=== PATIENT | female | born 1990 | race Caucasian/White ===

== ENCOUNTER 2016-11-18 19:58 | Emergency (ER) | payer OTHER ==
--- NOTE | 2016-11-18 22:59 | ED NURSING NOTES ---
Clinical Report - Nurses [facility] [address] [place] [address] 11/18/2016 19:59 Patient: YENNIFER NOLASCO TRIAGE Triage time 20:05. Acuity: LEVEL 3. Chief Complaint: ABDOMINAL PAIN. 20:15 11/18/16. Alert. No acute distress. DAVON COMA SCORE: [place] Coma Scale: 15- eyes open spontaneously (4); best verbal response- oriented x 4 (5); best motor response- obeys commands (6). --20:15 Jaida Brooks R.N. 20:08 11/18/16. BP: 117/81. HR: 78. RR: 14. O2 saturation: 100%. Temp: 98.4 F. Pain level now: 01/18. --20:15 Jaida Brooks R.N. Weight: 63.9 kg stated. Height/Length: 63 inches Per Patient. BMI: 25. --20:10 Jaida Brooks R.N. Medications OxyCODONE HCl Oral. --20:11 Jaida Brooks R.N. Allergies Amoxicillin. --20:11 Jaida Brooks R.N. Penicillin. --20:11 Jaida Brooks R.N. Methocarbamol. --20:11 Jaida Brooks R.N. History Arrived by private vehicle. Historian: patient. Accompanied by (sister). Primary physician (Dr Jo ([place])). Onset. ("a couple hours ago"). ( Patient states "I feel like I'm being stabbed in my stomach. The pain came out of nowhere"). She has had nausea. Last oral intake by patient was (string cheese at 2pm). 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 PAST MEDICAL HX: Immunizations: up-to-date. Last normal menstrual period- 1 month ago. Denies current . SOCIAL HX: Light tobacco smoker (cigarette)- less than 1/2 a pack per day. History of drug use: heroin. Is a recovering addict. (patient states she had a relapse a week ago but is currently getting help for drug use.). FALL RISK ASSESSMENT: Fall risk assessment completed. No fall risk identified. NUTRITIONAL RISK ASSESSMENT: The nutritional risk assessment revealed no deficiencies. FUNCTIONAL ASSESSMENT: Functional assessment: no impairments noted. LEARNING NEEDS ASSESSMENT: The learning needs assessment revealed no barriers. SKIN INTEGRITY ASSESSMENT: Skin integrity risk assessment completed. No skin integrity risk identified. --20:15 Jaida Brooks R.N. PROBLEMS: Scoliosis. Chronic pancreatitis. --20:12 Jaida Brooks R.N. ADDITIONAL SURGERIES: Back Surgery. Cholecystectomy. --20:12 Jaida Brooks R.N. Tubal Ligation. --20:14 Jaida Brooks R.N. Interventions ID band on patient. To treatment room. --20:15 Jaida Brooks R.N. PHYSICAL ASSESSMENT 20:16 11/18/16. Ambulatory to room. GENERAL / NEURO / PSYCH: Alert. Oriented X 4. Appears in no acute distress. HEENT: Mucous membranes are pink. RESPIRATORY: Respirations not labored. CVS: Capillary refill less than 2 seconds. GI / : Abdomen soft. Abdominal tenderness in the epigastric area. Bowel sounds within normal limits. SKIN: Skin is warm and dry. --20:16 Jaida Brooks R.N. NURSING PROGRESS NOTES 20:16 11/18/16. Patient gowned. Two patient identifiers checked. Call light placed in reach. Side rails up x 1. Bed placed in lowest position. Brakes of bed on. --20:16 Jaida Brooks R.N. 20:20. Patient ID band checked for patient name and birthdate: patient confirmed. Clean catch urine collected with return of jonathan-colored cloudy urine; sample sent to lab for urinalysis and culture. Specimen labeled in the presence of the patient (upreg Neg -- primary nurse notified). --20:20 Liliana eHrnandez R.N. 21:00 11/18/2016 Site #1 started via IV in the right antecubital space with an 20g angiocath; one attempt. Blood drawn: rainbow set. Labeled in the presence of the patient and sent to the lab. Saline lock flushed with 5 mL saline. --21:10 Jaida Brooks R.N. 21:10 11/18/2016 Toradol IVP 30 mg given over 2 minute(s) via site #1. Allergies verified and confirmed 5 rights. IV patency established. IV site checked: no pain, redness, or swelling. IV flushed thoroughly pre- and post-medication administration. IVP given by RN. --21:10 Jaida Brooks R.N. 21:25 11/18/2016 Toradol IVP Response: no adverse reaction symptoms have gotten worse. The patient feels worse. (ED SCENIC ARTIST notified of increased pain.). --22:01 Jaida Brooks R.N. 21:42 11/18/2016 Zofran (Ondansetron HCl) IVP 4 mg given over 2 minute(s) via site #1. Allergies verified and confirmed 5 rights. IV patency established. IV site checked: no pain, redness, or swelling. IV flushed thoroughly pre- and post-medication administration. --21:47 Stanley Canela R.N. 21:44 11/18/2016 Dilaudid (HYDROmorphone HCl PF) IVP 1 mg given over 2 minute(s) via site #1. Allergies verified, confirmed 5 rights and sedative warning given to the patient and patient's tetryl dissolver operator. IV patency established. IV site checked: no pain, redness, or swelling. IV flushed thoroughly pre- and post-medication administration. --21:47 Stanley Canela R.N. 21:47. Pulse oximeter placed on patient; monitor alarms on. --21:47 Stanley Canela R.N. 22:00 11/18/16. Reassessment after medication administered. She has had no adverse reaction. Overall patient status is improved- she states feels better. --22:00 Jaida Brooks R.N. 21:59 11/18/16. BP: 110/62 taken on the left arm, while lying. HR: 62. RR: 14. O2 saturation: 100%. Pain level now: 11/18. --22:00 Jaida Brooks R.N. 22:02 11/18/2016 Zofran IVP Response: no adverse reaction pain is improving. Symptoms have improved the patient feels better. 11/18/2016 21:59 BP: 110/62. HR: 62. RR: 14. O2 saturation: 100%. Pain level now: 11/18. --22:02 Jaida Brooks R.N. 22:03 11/18/2016 Dilaudid IVP Response: no adverse reaction pain is gone now. Symptoms have improved the patient feels better. 11/18/2016 21:59 BP: 110/62. HR: 62. RR: 14. O2 saturation: 100%. Pain level now: 11/18. --22:03 Jaida Brooks R.N. 23:00 11/18/16. --23:00 Jaida Brooks R.N. 23:00 11/18/16. BP: 111/74. HR: 74. RR: 14. O2 saturation: 100%. Temp: deferred. Pain level now: 01/18. --23:00 Jaida Brooks R.N. ( ED SCENIC ARTIST notified of 01/18 pain. No orders given.). --23:06 Jaida Brooks R.N. DISPOSITION / DISCHARGE 23:00 11/18/16. BP: 111/74. HR: 74. RR: 14. O2 saturation: 100%. Temp: deferred. Pain level now: 01/18. --23:06 Jaida Brooks R.N. 23:15 11/18/16. No learning barriers present. Discharge instructions provided and reviewed with the patient and family. Reviewed warnings. Treatments reviewed. Reviewed referrals. Patient and family verbalized understanding. Written instructions provided in Yoruba. The patient was discharged home and accompanied by family. She left the Emergency Department ambulatory and via private vehicle. Family member driving. --23:15 Jaida Brooks R.N. Departure time: 23:17. --23:17 Jaida Brooks R.N. Locked/Released at 11/18/2016 23:53 by Jaida Brooks R.N.
--- NOTE | 2016-11-18 22:59 | ED ORDER SUMMARY ---
..... Patient: YENNIFER NOLASCO OrderSheet [facility] VisitID: [id number] [place] [address] 26y, F Registration Date/Time: 11/18/2016 ORDER SHEET Weight: 63.9 kg (stated) Allergies: Amoxicillin, Penicillin, Methocarbamol GENERAL ORDERS: UA-Culture if indicated Urgent (20:20 11/18/2016 RMarsden R.N. per protocol) (Collected 20:20 RMarsden R.N.) (20:34 RMarsden R.N.) POC - Urine hCG (20:21 11/18/2016 DDean R.N. per protocol) (20:21 DDean R.N.) CBC w Diff Urgent (20:41 11/18/2016 HBivens A.R.N.P.) (Ack 20:43 CHagerty ER Temporary Staff Accountant) (Collected 21:10 RMarsden R.N.) (21:21 CHagerty ER Temporary Staff Accountant) CMP Urgent (20:41 11/18/2016 HBivens A.R.N.P.) (Ack 20:43 CHagerty ER Temporary Staff Accountant) (Collected 21:10 RMarsden R.N.) (21:21 CHagerty ER Temporary Staff Accountant) Amylase Urgent (20:41 11/18/2016 HBivens A.R.N.P.) (Ack 20:43 CHagerty ER Temporary Staff Accountant) (Collected 21:10 RMarsden R.N.) (21:21 CHagerty ER Temporary Staff Accountant) Lipase Urgent (20:41 11/18/2016 HBivens A.R.N.P.) (Ack 20:43 CHagerty ER Temporary Staff Accountant) (Collected 21:10 RMarsden R.N.) (21:21 CHagerty ER Temporary Staff Accountant) US Abdomen Limited (No) Urgent (21:55 11/18/2016 HBivens A.R.N.P.) (Ack 21:58 CHagerty ER Temporary Staff Accountant) (22:40 RFay) MEDICATION ORDERS: IV FLUIDS: Toradol IV 30 mg (NOW) (20:41 11/18/2016 HBivens A.R.N.P.) (Ack 20:53 RMarsden R.N.) (21:10 RMarsden R.N.) IV Saline Lock (20:41 11/18/2016 HBivens A.R.N.P.) (Ack 20:53 RMarsden R.N.) (21:10 RMarsden R.N.) Dilaudid IV 1 mg (HIGH ALERT MEDICATION, NOW) (21:38 11/18/2016 HBivens A.R.N.P.) (Ack 21:41 JQuivey R.N.) (21:47 JQuivey R.N.) Zofran IV 4 mg (NOW) (21:38 11/18/2016 HBivens A.R.N.P.) (Ack 21:41 JQuivey R.N.) (21:47 JQuivey R.N.) ORDER SHEET NOTES: [Electronically signed by Leila CespedesRAnatoliyNAnatoliyPAnatoliy (23:51 11/18/2016)] [Electronically signed by Jaida Brooks R.N. (23:53 11/18/2016)] [Electronically locked/signed by Jaida Brooks R.N. (23:53 11/18/2016)]
--- NOTE | 2016-11-18 22:59 | ED ORDER SUMMARY ---
..... Patient: YENNIFER NOLASCO OrderSheet [facility] VisitID: [id number] [place] [address] 26y, F Registration Date/Time: 11/18/2016 ORDER SHEET Weight: 63.9 kg (stated) Allergies: Amoxicillin, Penicillin, Methocarbamol GENERAL ORDERS: UA-Culture if indicated Urgent (20:20 11/18/2016 RMarsden R.N. per protocol) (Collected 20:20 RMarsden R.N.) (20:34 RMarsden R.N.) POC - Urine hCG (20:21 11/18/2016 DDean R.N. per protocol) (20:21 DDean R.N.) CBC w Diff Urgent (20:41 11/18/2016 HBivens A.R.N.P.) (Ack 20:43 CHagerty ER Nurse Emergency) (Collected 21:10 RMarsden R.N.) (21:21 CHagerty ER Nurse Emergency) CMP Urgent (20:41 11/18/2016 HBivens A.R.N.P.) (Ack 20:43 CHagerty ER Nurse Emergency) (Collected 21:10 RMarsden R.N.) (21:21 CHagerty ER Nurse Emergency) Amylase Urgent (20:41 11/18/2016 HBivens A.R.N.P.) (Ack 20:43 CHagerty ER Nurse Emergency) (Collected 21:10 RMarsden R.N.) (21:21 CHagerty ER Nurse Emergency) Lipase Urgent (20:41 11/18/2016 HBivens A.R.N.P.) (Ack 20:43 CHagerty ER Nurse Emergency) (Collected 21:10 RMarsden R.N.) (21:21 CHagerty ER Nurse Emergency) US Abdomen Limited (No) Urgent (21:55 11/18/2016 HBivens A.R.N.P.) (Ack 21:58 CHagerty ER Nurse Emergency) (22:40 RFay) MEDICATION ORDERS: IV FLUIDS: Toradol IV 30 mg (NOW) (20:41 11/18/2016 HBivens A.R.N.P.) (Ack 20:53 RMarsden R.N.) (21:10 RMarsden R.N.) IV Saline Lock (20:41 11/18/2016 HBivens A.R.N.P.) (Ack 20:53 RMarsden R.N.) (21:10 RMarsden R.N.) Dilaudid IV 1 mg (HIGH ALERT MEDICATION, NOW) (21:38 11/18/2016 HBivens A.R.N.P.) (Ack 21:41 JQuivey R.N.) (21:47 JQuivey R.N.) Zofran IV 4 mg (NOW) (21:38 11/18/2016 HBivens A.R.N.P.) (Ack 21:41 JQuivey R.N.) (21:47 JQuivey R.N.) ORDER SHEET NOTES: [Electronically signed by Leila CespedesRAnatoliyNAnatoliyPAnatoliy (23:51 11/18/2016)] [Electronically signed by Jaida Brooks R.N. (23:53 11/18/2016)] [Electronically locked/signed by Jaida Brooks R.N. (23:53 11/18/2016)]
--- NOTE | 2016-11-18 22:59 | ED CLINICAL REPORT ---
Clinical Report - Physicians/Mid Levels [facility] [address] [place] [address] 11/18/2016 19:59 Patient: YENNIFER NOLASCO Time Seen: 20:20; initial patient contact, initial documentation, patient care assumed. Arrived- By private vehicle. Historian- patient. HISTORY OF PRESENT ILLNESS Chief Complaint: ABDOMINAL PAIN. At its maximum, severity described as severe. When seen in the E.D., severity described as severe. Modifying factors. Not worsened by anything. Not relieved by anything. It is described as "pain" and stabbing. No radiation. It is described as located in the upper abdomen. This started about 2 hours ago WAITER/WAITRESS COUNTER and is still present. The patient has had nausea. No loss of appetite, vomiting or diarrhea. No additional abdominal pain. No recent travel. Similar symptoms previously: Chronically, as bad. Recent medical care: Not recently seen/assessed. REVIEW OF SYSTEMS No constipation, black stools, difficulty with urination, pain with urination or urinary frequency. No fever, chest pain or difficulty breathing. Denies current . All systems otherwise negative, except as recorded above. PAST HISTORY See nurses notes. PROBLEMS: Scoliosis. Chronic pancreatitis. --20:12 Jaida Brooks R.N. ADDITIONAL SURGERIES: Back Surgery. Cholecystectomy. --20:12 Jaida Brooks R.N. Tubal Ligation. --20:14 Jaida Brooks R.N. SOCIAL HISTORY Light tobacco smoker. Occasional alcohol use. History of heavy IV drug use: heroin. No recent travel. Is a local resident. FAMILY HISTORY Negative. ADDITIONAL NOTES The nursing notes have been reviewed with agreement regarding the chief complaint, HPI, ROS, PMH and patient medications and allergies. PHYSICAL EXAM Vital Signs: 11/18/2016 20:08 BP: 117/81. HR: 78. RR: 14. O2 saturation: 100%. Temp: 98.4 F. Pain level now: 8/10. Have been reviewed as normal and appear to be correct. Appearance: Alert. Oriented X3. No acute distress. Eyes: Pupils equal, round and reactive to light. Eyes normal inspection. Neck: Normal inspection. Neck supple. CVS: Normal heart rate and rhythm. Heart sounds normal. Pulses normal. Respiratory: No respiratory distress. Breath sounds normal. Chest nontender. Abdomen: Soft and nontender. Bowel sounds normal. No organomegaly. No mass. Back: Normal inspection. Skin: Skin warm and dry. Normal skin color. No rash. Normal skin turgor. Extremities: Extremities exhibit normal ROM. No lower extremity edema. Neuro: Oriented X 3. No motor deficit. No sensory deficit. LABS, X-RAYS, AND EKG Abdominal Sonogram: No acute disease. (verbal report by US Gentile). The study was discussed with the radiologist. Interpretation time: 22:37. Laboratory Tests: UA-Culture if indicated: (DEBRA: 11/18/2016 20:05) ( MsgRcvd 11/18/2016 20:40) Final results Test Result Flag Units (Reference) URINE COLOR YELLOW URINE APPEARANCE SL CLOUDY URINE GLUCOSE NEGATIVE (NEGATIVE) URINE BILIRUBIN NEGATIVE (NEGATIVE) URINE KETONE NEGATIVE (NEGATIVE) URINE SPECIFIC GRAVITY 1.015 (1.010-1.030) URINE PH 8.5 H (5.0-8.0) URINE PROTEIN NEGATIVE (NEGATIVE) URINE UROBILINOGEN 0.2 EU/dL (0.2-1.0) URINE NITRITE NEGATIVE (NEGATIVE) URINE BLOOD NEGATIVE (NEGATIVE) URINE LEUK ESTERASE NEGATIVE (NEGATIVE) URINE RBC NONE SEEN rbc/hpf (0-1) URINE WBC 0-1 wbc/hpf (0-1) URINE EPITHELIAL CELLS 1-3 EPI/hpf (0-5) URINE BACTERIA TRACE (<1+) (NONE SEEN) URINE COMMENT CULT NOT INDICATED 2+ AMORPHOUSURINE CULTURES ARE SET-UP BASED ON THE FOLLOWING CRITERIA:POSITIVE NITRITEPOSITIVE LEUKOCYTE ESTERASEGREATER THAN 10 WHITE BLOOD CELLSMODERATE (2+) OR GREATER BACTERIA CBC w Diff: (DEBRA: 11/18/2016 21:07) ( [facility] [place]/18/[place] 21:16) Final results Test Result Flag Units (Reference) WHITE BLOOD COUNT 8.4 K/uL (4.5-11.5) RED BLOOD COUNT 4.57 M/uL (4.00-5.20) HEMOGLOBIN 13.5 gm/dL (12.0-16.0) HEMATOCRIT 40.5 % (36.0-46.0) MEAN CELL VOLUME 89 fL (80-100) MEAN CORPUSCULAR HGB 30 pg (26-34) MEAN CORPUSCULAR HGB CONC 33 g/dL (31-37) RED CELL DISTRIBUTION WIDTH 13.0 % (11.6-14.8) PLATELET COUNT 215 K/uL (150-400) NEUTROPHIL % 62.8 % (50-75) LYMPH % 31.5 % (25-40) MONO % 5.1 % (3-14) EOSINOPHIL % 0.2 % (0-4) BASOPHIL % 0.4 % (0-2) CMP: (DEBRA: 11/18/2016 21:07) ( MsgRcvd 11/18/2016 21:47) Final results Test Result Flag Units (Reference) GLUCOSE 97 mg/dL (70-110) BUN 11 mg/dL (7-18) CREATININE 0.7 mg/dL (0.6-1.3) Estimated GFR >60 mL/min Estimated GFR- >60 mL/min Note: Persistent reduction over 3 months in eGFR<60 mL/min/1.73 m2 defines CKD. Patients with eGFR values>=60 mL/min/1.73 m2 may also have CKD if evidence ofpersistent proteinuria. Additional information may be foundat www.kidney.org. SODIUM 146 H mmol/L (136-145) POTASSIUM 3.6 mmol/L (3.5-5.1) CHLORIDE 109 H mmol/L (98-107) CARBON DIOXIDE 27 mmol/L (21-32) CALCIUM 9.1 mg/dL (8.5-10.1) TOTAL PROTEIN 6.8 g/dL (6.4-8.2) ALBUMIN 3.5 g/dL (3.3-5.0) BILIRUBIN, TOTAL 0.3 mg/dL (0.0-1.0) ALKALINE PHOSPHATASE 37 L U/L (46-116) AST (SGOT) 12 L U/L (15-37) ALT (SGPT) 15 U/L (12-78) LIPASE 451 H U/L (73-393) AMYLASE 70 U/L (25-115) . PROGRESS AND PROCEDURES Course of Care: 20:27 11/18/16. pt has mak report for frequent narcs and #12 er visits, last rx 11/02 oxycodone 5mg #90, see report for full details 21:58 11/18/16. pt aware of current lab results, and us ordered, pain decreased after dilaudid 23:05 11/18/16. discussed US with Dr Spaulding. Patient counseled in person regarding the patient's stable condition, test results and diagnosis. 22:55. Differential Diagnosis: I considered gastritis, gastroenteritis, peptic ulcer disease, gastroesophageal reflux disease, acute appendicitis, diverticulitis, colon cancer, ulcerative colitis, Crohn's disease, obstipation, biliary colic, cholecystitis, cholelithiasis, hepatitis, pancreatitis, common bile duct obstruction, urinary tract infection, ureterolithiasis, and viral syndrome as a possible cause of abdominal pain in this patient. This is a partial list of diagnoses considered. (substance abuse). Above considerations are based on history, physical exam, reassessment and laboratory data. Differential diagnosis was discussed with patient. Disposition: Discharged home in good and improved condition (22:59). Condition: good and stable. CLINICAL IMPRESSION Acute right upper quadrant, epigastric and left upper quadrant abdominal pain of undetermined cause. INSTRUCTIONS Warnings: GENERAL WARNINGS: Return or contact your physician immediately if your condition worsens or changes unexpectedly, if not improving as expected, or if other problems arise. SPECIFICALLY, return if you develop pain in the abdomen or pelvis, fever, the inability to keep fluids down, blood in vomitus, blood in diarrhea, fainting or lightheadedness. Follow-up: Follow up with your doctor in about two days even if well. Call for an appointment. Summary of care provided to patient. Understanding of the discharge instructions verbalized by patient. (Electronically signed by Leila Cespedes A.R.N.P. 11/18/2016 23:51)
--- NOTE | 2016-11-18 22:59 | ED NURSING NOTES ---
Clinical Report - Nurses [facility] [address] [place] [address] 11/18/2016 19:59 Patient: YENNIFER NOLASCO TRIAGE Triage time 20:05. Acuity: LEVEL 3. Chief Complaint: ABDOMINAL PAIN. 20:15 11/18/16. Alert. No acute distress. DAVON COMA SCORE: Marilla Coma Scale: 15- eyes open spontaneously (4); best verbal response- oriented x 4 (5); best motor response- obeys commands (6). --20:15 Jaida Brooks R.N. 20:08 11/18/16. BP: 117/81. HR: 78. RR: 14. O2 saturation: 100%. Temp: 98.4 F. Pain level now: 01/18. --20:15 Jaida Brooks R.N. Weight: 63.9 kg stated. Height/Length: 63 inches Per Patient. BMI: 25. --20:10 Jaida Brooks R.N. Medications OxyCODONE HCl Oral. --20:11 Jaida Brooks R.N. Allergies Amoxicillin. --20:11 Jaida Brooks R.N. Penicillin. --20:11 Jaida Brooks R.N. Methocarbamol. --20:11 Jaida Brooks R.N. History Arrived by private vehicle. Historian: patient. Accompanied by (sister). Primary physician (Dr Jo ([place])). Onset. ("a couple hours ago"). ( Patient states "I feel like I'm being stabbed in my stomach. The pain came out of nowhere"). She has had nausea. Last oral intake by patient was (string cheese at 2pm). 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 PAST MEDICAL HX: Immunizations: up-to-date. Last normal menstrual period- 1 month ago. Denies current . SOCIAL HX: Light tobacco smoker (cigarette)- less than 1/2 a pack per day. History of drug use: heroin. Is a recovering addict. (patient states she had a relapse a week ago but is currently getting help for drug use.). FALL RISK ASSESSMENT: Fall risk assessment completed. No fall risk identified. NUTRITIONAL RISK ASSESSMENT: The nutritional risk assessment revealed no deficiencies. FUNCTIONAL ASSESSMENT: Functional assessment: no impairments noted. LEARNING NEEDS ASSESSMENT: The learning needs assessment revealed no barriers. SKIN INTEGRITY ASSESSMENT: Skin integrity risk assessment completed. No skin integrity risk identified. --20:15 Jaida Brooks R.N. PROBLEMS: Scoliosis. Chronic pancreatitis. --20:12 Jaida Brooks R.N. ADDITIONAL SURGERIES: Back Surgery. Cholecystectomy. --20:12 Jaida Brooks R.N. Tubal Ligation. --20:14 Jaida Brooks R.N. Interventions ID band on patient. To treatment room. --20:15 Jaida Brooks R.N. PHYSICAL ASSESSMENT 20:16 11/18/16. Ambulatory to room. GENERAL / NEURO / PSYCH: Alert. Oriented X 4. Appears in no acute distress. HEENT: Mucous membranes are pink. RESPIRATORY: Respirations not labored. CVS: Capillary refill less than 2 seconds. GI / : Abdomen soft. Abdominal tenderness in the epigastric area. Bowel sounds within normal limits. SKIN: Skin is warm and dry. --20:16 Jaida Brooks R.N. NURSING PROGRESS NOTES 20:16 11/18/16. Patient gowned. Two patient identifiers checked. Call light placed in reach. Side rails up x 1. Bed placed in lowest position. Brakes of bed on. --20:16 Jaida Brooks R.N. 20:20. Patient ID band checked for patient name and birthdate: patient confirmed. Clean catch urine collected with return of jonathan-colored cloudy urine; sample sent to lab for urinalysis and culture. Specimen labeled in the presence of the patient (upreg Neg -- primary nurse notified). --20:20 Liliana Hernandez R.N. 21:00 11/18/2016 Site #1 started via IV in the right antecubital space with an 20g angiocath; one attempt. Blood drawn: rainbow set. Labeled in the presence of the patient and sent to the lab. Saline lock flushed with 5 mL saline. --21:10 Jaida Brooks R.N. 21:10 11/18/2016 Toradol IVP 30 mg given over 2 minute(s) via site #1. Allergies verified and confirmed 5 rights. IV patency established. IV site checked: no pain, redness, or swelling. IV flushed thoroughly pre- and post-medication administration. IVP given by RN. --21:10 Jaida Brooks R.N. 21:25 11/18/2016 Toradol IVP Response: no adverse reaction symptoms have gotten worse. The patient feels worse. (ED PLANNER SCHEDULER notified of increased pain.). --22:01 Jaida Brooks R.N. 21:42 11/18/2016 Zofran (Ondansetron HCl) IVP 4 mg given over 2 minute(s) via site #1. Allergies verified and confirmed 5 rights. IV patency established. IV site checked: no pain, redness, or swelling. IV flushed thoroughly pre- and post-medication administration. --21:47 Stanley Canela R.N. 21:44 11/18/2016 Dilaudid (HYDROmorphone HCl PF) IVP 1 mg given over 2 minute(s) via site #1. Allergies verified, confirmed 5 rights and sedative warning given to the patient and patient's services account manager. IV patency established. IV site checked: no pain, redness, or swelling. IV flushed thoroughly pre- and post-medication administration. --21:47 Stanley Canela R.N. 21:47. Pulse oximeter placed on patient; monitor alarms on. --21:47 Stanley Canela R.N. 22:00 11/18/16. Reassessment after medication administered. She has had no adverse reaction. Overall patient status is improved- she states feels better. --22:00 Jaida Brooks R.N. 21:59 11/18/16. BP: 110/62 taken on the left arm, while lying. HR: 62. RR: 14. O2 saturation: 100%. Pain level now: 11/18. --22:00 Jaida Brooks R.N. 22:02 11/18/2016 Zofran IVP Response: no adverse reaction pain is improving. Symptoms have improved the patient feels better. 11/18/2016 21:59 BP: 110/62. HR: 62. RR: 14. O2 saturation: 100%. Pain level now: 11/18. --22:02 Jaida Brooks R.N. 22:03 11/18/2016 Dilaudid IVP Response: no adverse reaction pain is gone now. Symptoms have improved the patient feels better. 11/18/2016 21:59 BP: 110/62. HR: 62. RR: 14. O2 saturation: 100%. Pain level now: 11/18. --22:03 Jaida Brooks R.N. 23:00 11/18/16. --23:00 Jaida Brooks R.N. 23:00 11/18/16. BP: 111/74. HR: 74. RR: 14. O2 saturation: 100%. Temp: deferred. Pain level now: 01/18. --23:00 Jaida Brooks R.N. ( ED PLANNER SCHEDULER notified of 01/18 pain. No orders given.). --23:06 Jaida Brooks R.N. DISPOSITION / DISCHARGE 23:00 11/18/16. BP: 111/74. HR: 74. RR: 14. O2 saturation: 100%. Temp: deferred. Pain level now: 01/18. --23:06 Jaida Brooks R.N. 23:15 11/18/16. No learning barriers present. Discharge instructions provided and reviewed with the patient and family. Reviewed warnings. Treatments reviewed. Reviewed referrals. Patient and family verbalized understanding. Written instructions provided in Greenlandic. The patient was discharged home and accompanied by family. She left the Emergency Department ambulatory and via private vehicle. Family member driving. --23:15 Jaida Brooks R.N. Departure time: 23:17. --23:17 Jaida Brooks R.N. Locked/Released at 11/18/2016 23:53 by Jaida Brooks R.N.
--- NOTE | 2016-11-18 23:07 | DIAGNOSTIC IMAGING REPORT ---
PROCEDURE: US ABDOMEN ULTRASOUND-LIMITED INDICATION: RUQ PAIN TECHNIQUE: Rubi scale and color Doppler sonographic images of the abdomen were obtained. COMPARISON: None. FINDINGS: Status post cholecystectomy. Common duct is normal (4 mm). Portions of the liver, pancreas, and right kidney are seen, and are normal. IMPRESSION: 1. Status post cholecystectomy. 2. Otherwise negative ultrasound of the right upper quadrant. 3. Findings discussed with TESFAYE Fishman.
--- NOTE | 2016-11-18 23:53 | ED MED RECONCILIATION SUMMARY ---
Patient: YENNIFER NOLASCO Medication Reconciliation Report [facility] VisitID: [id number] [address] [place] [address] 26y, F Registration Date/Time: 11/18/2016 Weight: 63.9 kg Height/Length: 63 in. BMI: 25.0 ALLERGIES: Amoxicillin, Methocarbamol, Penicillin The patient's Home Medications are listed below: THE FOLLOWING MEDICATIONS NEED TO BE RECONCILED: OxyCODONE HCl Oral The source(s) of the original Home Medication information: Not obtained. The following Medications were given to the patient in the Emergency Department: Toradol [IVP] IVP 30 mg, administered: 11/18/2016 9:10:00 PM Zofran [IVP] IVP 4 mg, administered: 11/18/2016 9:42:00 PM Dilaudid [IVP] IVP 1 mg, administered: 11/18/2016 9:44:00 PM The following Medications were prescribed to the patient: None.
--- NOTE | 2016-11-18 23:53 | ED MAR SUMMARY ---
..... Medication Administration Record [facility] [address] [place] [address] Patient: YENNIFER NOLASCO Visit ID: [id number] 26y, F Weight: 63.9 kg Height/Length: 63 in BMI: 25 ALLERGIES: Methocarbamol, Penicillin, Amoxicillin Given 21:11/18/2016 Jaida Brooks RDavid Medication Administered: TORADOL [IVP], Dose: 30 mg IVP over 2 minute(s), Site: #1 right AC. Medication Ordered: Toradol IV 30 mg (NOW). Given 21:11/18/2016 Stanley Canela RAnatoliyN. Medication Administered: ZOFRAN [IVP] (ONDANSETRON HCL), Dose: 4 mg IVP over 2 minute(s), Site: #1 right AC. Medication Ordered: Zofran IV 4 mg (NOW). Given 21:11/18/2016 Stanley Canela R.N. Medication Administered: DILAUDID [IVP] (HYDROMORPHONE HCL PF), Dose: 1 mg IVP over 2 minute(s), Site: #1 right AC. Medication Ordered: Dilaudid IV 1 mg (HIGH ALERT MEDICATION, NOW).
--- NOTE | 2016-11-18 23:53 | ED MED RECONCILIATION SUMMARY ---
Patient: YENNIFER NOLASCO Medication Reconciliation Report [facility] VisitID: [id number] [address] [place] [address] 26y, F Registration Date/Time: 11/18/2016 Weight: 63.9 kg Height/Length: 63 in. BMI: 25.0 ALLERGIES: Amoxicillin, Methocarbamol, Penicillin The patient's Home Medications are listed below: THE FOLLOWING MEDICATIONS NEED TO BE RECONCILED: OxyCODONE HCl Oral The source(s) of the original Home Medication information: Not obtained. The following Medications were given to the patient in the Emergency Department: Toradol [IVP] IVP 30 mg, administered: 11/18/2016 9:10:00 PM Zofran [IVP] IVP 4 mg, administered: 11/18/2016 9:42:00 PM Dilaudid [IVP] IVP 1 mg, administered: 11/18/2016 9:44:00 PM The following Medications were prescribed to the patient: None.
--- NOTE | 2016-11-18 23:53 | ED MAR SUMMARY ---
..... Medication Administration Record [facility] [address] [place] [address] Patient: YENNIFER NOLASCO Visit ID: [id number] 26y, F Weight: 63.9 kg Height/Length: 63 in BMI: 25 ALLERGIES: Methocarbamol, Penicillin, Amoxicillin Given 21:11/18/2016 Jaida Brooks RDavid Medication Administered: TORADOL [IVP], Dose: 30 mg IVP over 2 minute(s), Site: #1 right AC. Medication Ordered: Toradol IV 30 mg (NOW). Given 21:11/18/2016 Stanley Canela RAnatoliyN. Medication Administered: ZOFRAN [IVP] (ONDANSETRON HCL), Dose: 4 mg IVP over 2 minute(s), Site: #1 right AC. Medication Ordered: Zofran IV 4 mg (NOW). Given 21:11/18/2016 Stanley Canela R.N. Medication Administered: DILAUDID [IVP] (HYDROMORPHONE HCL PF), Dose: 1 mg IVP over 2 minute(s), Site: #1 right AC. Medication Ordered: Dilaudid IV 1 mg (HIGH ALERT MEDICATION, NOW).
--- NOTE | 2016-11-18 23:53 | ED DISCHARGE INSTRUCTIONS ---
Patient: YENNIFER NOLASCO General Instructions [facility] VisitID: [id number] [place] [address] 26y, F Registration Date/Time: 11/18/2016 Acute right upper quadrant, epigastric and left upper quadrant abdominal pain of undetermined cause. INSTRUCTIONS Warnings: GENERAL WARNINGS: Return or contact your physician immediately if your condition worsens or changes unexpectedly, if not improving as expected, or if other problems arise. SPECIFICALLY, return if you develop pain in the abdomen or pelvis, fever, the inability to keep fluids down, blood in vomitus, blood in diarrhea, fainting or lightheadedness. Follow-up: Follow up with your doctor in about two days even if well. Call for an appointment. Summary of care provided to patient. Understanding of the discharge instructions verbalized by patient. ADDITIONAL INFORMATION Abdominal Pain, Unknown Cause (Female) The exact cause of your abdominal (stomach) pain is not certain. This does not mean that this is something to worry about, or the right tests were not done. Everyone likes to know the exact cause of the problem, but sometimes with abdominal pain, there is no clear-cut cause, and this could be a good thing. The good news is that your symptoms can be treated, and you will feel better. Your condition does not seem serious now; however, sometimes the signs of a serious problem may take more time to appear. For this reason,it is important for you to watch for any new symptoms, problems,or worsening of your condition. Over the next few days, the abdominal pain may come and go, or be continuous. Other common symptoms can include nausea and vomiting. Sometimes it can be difficult to tell if you feel nauseous, you may just feel bad and not associate that feeling with nausea. Constipation, diarrhea, and a fever may go along with the pain. The pain may continue even if treated correctly over the following days. Depending on how things go, sometimes the cause can become clear and may require further or different treatment. Additional evaluations, medications, or tests may be needed. Home care Your health care provider may prescribe medications for pain, symptoms, or an infection. Follow the health care provider's instructions for taking these medications. General care Rest until your next exam. No strenuous activities. Try to find positions that ease discomfort. A small pillow placed on the abdomen may help relieve pain. Something warm on your abdomen (such as a heating pad) may help, but be careful not to burn yourself. Diet Do not force yourself to eat, especially if having cramps, vomiting, or diarrhea. Water is important so you do not get dehydrated. Soup may also be good. Sports drinks may also help, especially if they are not too acidic. Make sure you don't drink sugary drinks as this can make things worse. Take liquids in small amounts. Do not guzzle them. Caffeine sometimes makes the pain and cramping worse. Avoid dairy products if you have vomiting or diarrhea. Don't eat large amounts at a time. Wait a few minutes between bites. Eat a diet low in fiber (called a low-residue diet). Foods allowed include refined breads, white rice, fruit and vegetable juices without pulp, tender meats. These foods will pass more easily through the intestine. Avoid whole-grain foods, whole fruits and vegetables, meats, seeds and nuts, fried or fatty foods, dairy, alcohol and spicy foods until your symptoms go away. Follow-up care Follow up with your health care provider as instructed, or if your pain does not begin to improve in the next 24 hours. When to seek medical care Seek prompt medical care if any of the following occur: Pain gets worse or moves to the right lower abdomen New or worsening vomiting or diarrhea Swelling of the abdomen Unable to pass stool for more than three days Fever of 100.4F (38C) or higher, or as directed by your healthcare provider. Blood in vomit or bowel movements (dark red or black color) Jaundice (yellow color of eyes and skin) Weakness, dizziness Chest, arm, back, neck or jaw pain Unexpected vaginal bleeding or missed period Call 911 Call emergency services if any of the following occur: Trouble breathing Confusion Fainting or loss of consciousness Rapid heart rate Seizure You have been given the following additional information: Abdominal Pain, Unknown Cause, (Female) (Electronically signed by Leila Cespedes A.R.N.P. 11/18/2016 23:51)
== END 2016-11-18 23:17 | disposition home or self-care (01) ==
LOC: ED SRH 19:58
DX: R10.11 Right upper quadrant pain (principal); R10.13 Epigastric pain; R10.12 Left upper quadrant pain; K86.1 Other chronic pancreatitis; Z72.0 Tobacco use; Z79.891 Long term (current) use of opiate analgesic; Z88.0 Allergy status to penicillin; Z88.5 Allergy status to narcotic agent
CPT/HCPCS: 90004; 90100; 92235; 92530; 95059